=== PATIENT | female | born 1955 | race African-American/Black ===

== ENCOUNTER → 2017-10-31 | Outpatient (CLI) | payer MEDICARE | END | disposition home or self-care (01) | LOC: KCIC 14:18 | DX: M81.6 Localized osteoporosis [Lequesne] (principal); M79.672 Pain in left foot; G89.29 Other chronic pain | CPT/HCPCS: 73630 ==

== ENCOUNTER 2017-11-05 14:35 | Emergency (ER) | payer MEDICARE ==
[2017-11-05] MEDS: ASPIRIN 325 MG TABLET PO (15:30)
[2017-11-05 15:47] LABS: ADD MAN DIFF? NO
[2017-11-05 15:49] LABS: AGAP ISTAT 12 mmol/L (6-14); BUN ISTAT 10 mg/dL (8-26); CHLORIDE ISTAT 100 mmol/L (98-110); CREATININE ISTAT 1.1 mg/dL (0.5-1.4); GLUCOSE ISTAT 109 mg/dL (70-99); HEMATOCRIT ISTAT 47 % (36-40); ION CA ISTAT 1.09 mmol/L (1.13-1.32); POTASSIUM ISTAT 3.9 mmol/L (3.5-5.0); SODIUM ISTAT 135 mmol/L (135-145); TOT CO2 ISTAT 28 mmol/L (23-32)
[2017-11-05 15:52] LABS: BASO # 0.1 x10^3/uL (0.0-0.2); BASO % 1 % (0-3); EOS % 0 % (0-3); HEMATOCRIT 44.9 % (36.0-47.0); LYMPH # 2.5 x10^3/uL (1.0-4.8); LYMPH % 21 % (24-48); MEAN CORPUSCULAR HEMOGLOBIN 29 pg (25-35); MEAN CORPUSCULAR HGB CONC 33 g/dL (31-37); MEAN CORPUSCULAR VOLUME 86 fL (79-100); MONO # 0.9 x10^3/uL (0.0-1.1); MONO % 8 % (0-9); NEUT # 8.5 x10^3uL (1.8-7.7); NEUT % 70 % (31-73); PLATELET COUNT 288 x10^3/uL (140-400); RED BLOOD COUNT 5.23 x10^6/uL (3.50-5.40)
[2017-11-05 15:59] LABS: PROTHROMBIN TIME PATIENT 12.7 SEC (11.7-14.0)
[2017-11-05 16:04] LABS: ANION GAP 11 (6-14); BLOOD UREA NITROGEN 10 mg/dL (7-20); CALCIUM 9.9 mg/dL (8.5-10.1); CARBON DIOXIDE 28 mmol/L (21-32); CHLORIDE 99 mmol/L (98-107); CREATININE 1.2 mg/dL (0.6-1.0); GFR 55.4; GLUCOSE 113 mg/dL (70-99); MAGNESIUM 1.9 mg/dL (1.8-2.4); SODIUM 138 mmol/L (136-145)
[2017-11-05 16:10] LABS: TROPONINI < 0.017 ng/mL (0.000-0.055)
[2017-11-05 16:15] LABS: NT-PRO BNP 1350 pg/mL (0-124)
[2017-11-05 16:15] LABS: CKMB INDEX 0.5 % (0-4); CKMB MASS 0.6 ng/mL (0.0-3.6); CREATINE KINASE 124 U/L (26-192)
[2017-11-05 17:02] LABS: BILIRUBIN,URINE SMALL (NEG); CLARITY,URINE CLOUDY; GLUCOSE,URINE NEGATIVE (NEG); NITRITE,URINE POSITIVE (NEG); PH,URINE 5.5; PROTEIN,URINE 100 mg/dL (NEG-TRACE)
[2017-11-05 17:08] LABS: BARBITURATES NEG (NEG); BENZODIAZEPINES NEG (NEG); CANNABINOIDS POS (NEG); COCAINE NEG (NEG); METHADONE NEG (NEG); OPIATES NEG (NEG); PHENCYCLIDINE NEG (NEG)
[2017-11-05 17:10] LABS: AMPHETAMINE/METHAMPHETAMINE NEG (NEG); ETHANOL, URINE NEG (NEG)
[2017-11-05 17:17] LABS: COLOR,URINE AMBER; HYALINE CASTS, URINE MODERATE /HPF; RBC,URINE 0 /HPF (0-2); SQUAMOUS EPITHELIAL CELL,UR MANY /LPF
[2017-11-05 17:18] LABS: BACTERIA,URINE FEW /HPF (0-FEW)
== END 2017-11-05 17:17 | disposition home or self-care (01) ==
LOC: ER 14:35
DX: M47.812 Spondylosis without myelopathy or radiculopathy, cervical region (principal); M19.012 Primary osteoarthritis, left shoulder; E11.9 Type 2 diabetes mellitus without complications; I10 Essential (primary) hypertension; Z86.73 Personal history of transient ischemic attack (TIA), and cerebral infarction without residual deficits; Z79.82 Long term (current) use of aspirin
CPT/HCPCS: 36415; 71045; 72040; 73030; 80047; 80048; 80307; 81001; 82553; 83735; 83880; 84443; 84484; 85025; 85610; 93005; 99285-25

== ENCOUNTER → 2018-12-05 | Outpatient (CLI) | payer MEDICARE ==
[2017-11-05 17:07] VITALS: BP 155/69
[~2018-12-05] MED LIST: AMLO10TA8 PO; ASPI325T8 PO; ATOR40TA59 PO; CYCL10TA2 PO; HYDR-3164 PO; METF500T16 PO; NAPR-695 PO
[2018-12-05 11:46] LABS: BASO # 0.1 x10^3/uL (0.0-0.2); BASO % 1 % (0-3); EOS # 0.5 x10^3/uL (0.0-0.7); EOS % 8 % (0-3); HEMATOCRIT 41.6 % (36.0-47.0); HEMOGLOBIN 13.6 g/dL (12.0-15.5); LYMPH # 2.3 x10^3/uL (1.0-4.8); LYMPH % 38 % (24-48); MEAN CORPUSCULAR HEMOGLOBIN 28 pg (25-35); MEAN CORPUSCULAR HGB CONC 33 g/dL (31-37); MEAN CORPUSCULAR VOLUME 87 fL (79-100); MONO # 0.4 x10^3/uL (0.0-1.1); MONO % 6 % (0-9); NEUT # 2.9 x10^3uL (1.8-7.7); NEUT % 47 % (31-73); PLATELET COUNT 266 x10^3/uL (140-400); RED CELL DISTRIBUTION WIDTH 14.4 % (11.5-14.5); WHITE BLOOD COUNT 6.2 x10^3/uL (4.0-11.0)
[2018-12-05 12:14] LABS: ALBUMIN 3.4 g/dL (3.4-5.0); ALBUMIN/GLOBULIN RATIO 0.8 (1.0-1.7); CALCIUM 9.1 mg/dL (8.5-10.1); CREATININE 0.9 mg/dL (0.6-1.0); POTASSIUM 4.1 mmol/L (3.5-5.1); TOTAL BILIRUBIN 0.4 mg/dL (0.2-1.0); TOTAL PROTEIN 7.5 g/dL (6.4-8.2)
[2018-12-05 12:18] LABS: CHOLESTEROL/HDL RATIO 3.8
[2018-12-05 22:08] LABS: HEMOGLOBIN A1C 6.1 % (4.8-5.6)
== END | disposition home or self-care (01) ==
LOC: LAB 11:19
PROVIDERS: ATTEND Family Medicine
DX: Z13.220 Encounter for screening for lipoid disorders (principal); I10 Essential (primary) hypertension; R73.09 Other abnormal glucose; Z87.891 Personal history of nicotine dependence
CPT/HCPCS: 36415; 80053; 80061; 83036; 85025

== ENCOUNTER 2019-03-26 20:54 | Emergency (ER) | payer MEDICARE, OTHER ==
[~2019-03-26] VITALS: Ht 154.9 cm; Wt 85.3 kg
[2019-03-26] MEDS ORDERED: ACETAMINOPHEN 500 MG TABLET PO ONE (21:15)
[2019-03-26 21:16] LABS: BASO % 1 % (0-3); EOS # 0.4 x10^3/uL (0.0-0.7); EOS % 6 % (0-3); HEMATOCRIT 36.6 % (36.0-47.0); HEMOGLOBIN 12.5 g/dL (12.0-15.5); LYMPH # 3.2 x10^3/uL (1.0-4.8); LYMPH % 47 % (24-48); MEAN CORPUSCULAR HEMOGLOBIN 29 pg (25-35); MEAN CORPUSCULAR HGB CONC 34 g/dL (31-37); MEAN CORPUSCULAR VOLUME 85 fL (79-100); MONO # 0.5 x10^3/uL (0.0-1.1); MONO % 8 % (0-9); NEUT # 2.7 x10^3/uL (1.8-7.7); NEUT % 39 % (31-73); PLATELET COUNT 257 x10^3/uL (140-400); RED BLOOD COUNT 4.29 x10^6/uL (3.50-5.40); RED CELL DISTRIBUTION WIDTH 14.4 % (11.5-14.5); WHITE BLOOD COUNT 6.8 x10^3/uL (4.0-11.0)
[2019-03-26 21:25] LABS: CALCIUM 8.8 mg/dL (8.5-10.1); GFR 68.2; POTASSIUM 4.1 mmol/L (3.5-5.1)
[2019-03-26 21:31] LABS: ALBUMIN 3.2 g/dL (3.4-5.0); ALBUMIN/GLOBULIN RATIO 0.8 (1.0-1.7); TOTAL BILIRUBIN 0.3 mg/dL (0.2-1.0); TOTAL PROTEIN 7.1 g/dL (6.4-8.2)
[2019-03-26 21:55] LABS: % BASOS 2 % (0-3); % EOS 5 % (0-5); % LYMPHS 48 % (24-48); % MONOS 6 % (0-10); % SEGS 39 % (35-66); PLT ESTIMATE ADEQUATE (ADEQUATE)
--- NOTE | 2019-03-26 22:11 | PHYS DOC ---
Past Medical History Past Medical History: CVA, Diabetes-Type II, Hypertension, NM, Stroke Additional Past Medical Histor: CVA X 2, NM 2018 Past Surgical History: Cholecystectomy Alcohol Use: None Drug Use: None Adult General Chief Complaint Chief Complaint: CHEST PAIN HPI HPI Patient is a 63 year old [place] female presents with multiple medical complaints. Patient reports generalized weakness and right hip pain prompting her daughter to call EMS. Patient states she's been walking without her cane throughout the day and reports worsening of right hip pain and generalized weakness secondary to pain. Patient also reports on exertional left-sided chest pressure which is been intermittent for the past 2 days. Denies dyspnea, nausea, sweats, cough, A with deep breathing. No leg pain or swelling. Reports history of CAD with an STEMI last year. Patient states she did not follow-up with car diologist as previously scheduled. Patient has had similar chest pain episodes in the past 3 days and is currently pain-free on ED arrival. [] Review of Systems Review of Systems ROS as per HPI All other systems were reviewed and found to be within normal limits, except as documented in this note. Current Medications Current Medications Current Medications Medications (Trade) Dose Ordered Sig/Sandeep Start Time Stop Time Status Last Admin Dose Admin Acetaminophen (Tylenol) 1,000 mg 1X ONCE 03/26/19 21:15 03/26/19 21:16 DC 03/26/19 21:20 1,000 MG Allergies Allergies Allergies Coded Allergies Type Severity Reaction Last Updated Verified No Known Drug Allergies 05/14/16 No Physical Exam Physical Exam Constitutional: Well developed, well nourished, no acute distress, non-toxic appearance. [] HENT: Normocephalic, atraumatic, bilateral external ears normal, oropharynx moist, no oral exudates, nose normal. [] Eyes: PERRLA, EOMI, conjunctiva normal, no discharge. [] Neck: Normal range of motion, no tenderness, supple, no stridor. [] Cardiovascular:Heart rate regular rhythm, no murmur [] Lungs & Thorax: Bilateral breath sounds clear to auscultation [] Abdomen: Bowel sounds normal, soft, no tenderness, no masses, no pulsatile masses. [] Skin: Warm, dry, no erythema, no rash. [] Back: No tenderness, no CVA tenderness. [] Extremities: No tenderness, no cyanosis, no clubbing, ROM intact, no edema. [] Neurologic: Alert and oriented X 3, normal motor function, normal sensory function, no focal deficits noted. [] Psychologic: Affect normal, judgement normal, mood normal. [] Current Patient Data Vital Signs Vital Signs Date Time Temp Pulse Resp B/P (MAP) Pulse Ox O2 Delivery O2 Flow Rate FiO2 03/26/19 22:00 65 177/74 (108) 98 Room Air 03/26/19 21:00 98.3 20 98.3 Lab Values Laboratory Tests Test 03/26/19 21:00 White Blood Count 6.8 x10^3/uL (4.0-11.0) Red Blood Count 4.29 x10^6/uL (3.50-5.40) Hemoglobin 12.5 g/dL (12.0-15.5) Hematocrit 36.6 % (36.0-47.0) Mean Corpuscular Volume 85 fL (79-100) Mean Corpuscular Hemoglobin 29 pg (25-35) Mean Corpuscular Hemoglobin Concent 34 g/dL (31-37) Red Cell Distribution Width 14.4 % (11.5-14.5) Platelet Count 257 x10^3/uL (140-400) Neutrophils (%) (Auto) 39 % (31-73) Lymphocytes (%) (Auto) 47 % (24-48) Monocytes (%) (Auto) 8 % (0-9) Eosinophils (%) (Auto) 6 % (0-3) H Basophils (%) (Auto) 1 % (0-3) Neutrophils # (Auto) 2.7 x10^3/uL (1.8-7.7) Lymphocytes # (Auto) 3.2 x10^3/uL (1.0-4.8) Monocytes # (Auto) 0.5 x10^3/uL (0.0-1.1) Eosinophils # (Auto) 0.4 x10^3/uL (0.0-0.7) Basophils # (Auto) 0.0 x10^3/uL (0.0-0.2) Segmented Neutrophils % 39 % (35-66) Lymphocytes % 48 % (24-48) Monocytes % 6 % (0-10) Eosinophils % 5 % (0-5) Basophils % 2 % (0-3) Platelet Estimate Adequate (ADEQUATE) Sodium Level 144 mmol/L (136-145) Potassium Level 4.1 mmol/L (3.5-5.1) Chloride Level 107 mmol/L (98-107) Carbon Dioxide Level 27 mmol/L (21-32) Anion Gap 10 (6-14) Blood Urea Nitrogen 7 mg/dL (7-20) Creatinine 1.0 mg/dL (0.6-1.0) Estimated GFR (Cockcroft-Gault) 68.2 BUN/Creatinine Ratio 7 (6-20) Glucose Level 98 mg/dL (70-99) Calcium Level 8.8 mg/dL (8.5-10.1) Total Bilirubin 0.3 mg/dL (0.2-1.0) Aspartate Amino Transferase (AST) 18 U/L (15-37) Alanine Aminotransferase (ALT) 24 U/L (14-59) Alkaline Phosphatase 127 U/L (46-116) H Troponin I Quantitative < 0.017 ng/mL (0.000-0.055) Total Protein 7.1 g/dL (6.4-8.2) Albumin 3.2 g/dL (3.4-5.0) L Albumin/Globulin Ratio 0.8 (1.0-1.7) L Laboratory Tests 03/26/19 21:00 Laboratory Tests 03/26/19 21:00 EKG EKG [EKG: reviewed] Radiology/Procedures Radiology/Procedures [] Course & Med Decision Making Course & Med Decision Making Pertinent Labs and Imaging studies reviewed. (See chart for details) [Typical chest pain resolved prior to ED arrival. Chest pain nonexertional and reproduces with movement and position change. States her intention was come to the ED for evaluation of right hip pain which she attributes to walk without cane. EKG, troponin are nondiagnostic. Patient encouraged to be admitted to the hospital for further evaluation and cardiac stress testing. Patient declines admission and requests discharge from hospital. Will discharge home per patient request pending repeat troponin result.] Dragon Disclaimer Dragon Disclaimer This electronic medical record was generated, in whole or in part, using a voice recognition dictation system. Departure Departure Impression: Primary Impression: Chest pain Additional Impression: Right hip pain Disposition: HOME, SELF-CARE Condition: GOOD Referrals: Natalya MANZANARES MD (PCP) Patient Instructions: Chest Pain (Nonspecific) Additional Instructions: You were evaluated in the ED for chest pain. EKG and lab were performed and are non-dx. The cause of your symptoms has not been determined. Please follow up with your PCP in 2-3 days for re-evaluation and consideration of outpatient cardiac testing. Return to the ED if he develop new or worsening symptoms Problem Qualifiers JESSICA DAVILA DO Mar 26, 2019 22:11
[2019-03-27] VITALS: BP 152/65
--- NOTE | 2019-03-27 05:55 | EKG ---
[facility] [address] [place] [address] Test Date: 2019-03-26 Test Time: 20:56:11 Pat Name: PATY WELLER Department: Room: Gender: F Instrumentation Specialist: : 1955 Requested By: JESSICA DAVILA Order Number: [id number] Reading MD: Measurements Intervals [place] Rate: 55 P: 49 MO: 142 QRS: -51 QRSD: 124 T: 35 QT: 456 QTc: 442 Interpretive Statements SINUS RHYTHM ATRIAL PREMATURE COMPLEX(ES) ABNORMAL LEFT AXIS DEVIATION S1,S2,S3 PATTERN LEFT ANTERIOR FASCICULAR BLOCK RIGHT BUNDLE BRANCH BLOCK BIFASCICULAR BLOCK ABNORMAL ECG No previous ECG available for comparison
== END 2019-03-27 00:04 | disposition home or self-care (01) ==
LOC: ER 20:54
DX: R07.89 Other chest pain (principal); M25.551 Pain in right hip; R53.1 Weakness; E11.9 Type 2 diabetes mellitus without complications; I10 Essential (primary) hypertension; I25.2 Old myocardial infarction; Z86.73 Personal history of transient ischemic attack (TIA), and cerebral infarction without residual deficits; Z90.49 Acquired absence of other specified parts of digestive tract
CPT/HCPCS: 36415; 80053; 84484; 85007; 85025; 93005; 99285

== ENCOUNTER → 2020-05-04 | Outpatient (CLI) | payer MEDICARE, OTHER ==
[~2020-05-04] MED LIST changes: +SERT100T PO
== END | disposition home or self-care (01) ==
LOC: LAB 13:43
PROVIDERS: ATTEND Internal Medicine Cardiovascular Disease
DX: Z20.828 Contact with and (suspected) exposure to other viral communicable diseases (principal)
CPT/HCPCS: U0003-CS

== ENCOUNTER → 2020-05-19 | Outpatient (CLI) | payer MEDICARE, OTHER ==
[2020-05-07 10:34] VITALS: BP 183/74
[~2020-05-19] MED LIST changes: +ASPI-886 PO; +ATOR40TA PO; +CLOP75TA PO; +HYDR-2761 PO
--- NOTE | 2020-05-19 12:43 | CARD ---
MR#: [id number] Date of Study: 05/19/2020 Ordering Physician: DEMARCUS LATHAM, Referring Physician: DEMARCUS LATHAM, Tech: Yuko Reaves [facility] APPROVED REPORT EXAM: Two-dimensional and M-mode echocardiogram with Doppler and color Doppler. Other Information Quality : Good INDICATION CVA/TIA 2D DIMENSIONS RVDd2.6 (2.9-3.5cm)Left Atrium(2D)3.3 (1.6-4.0cm) IVSd1.2 (0.7-1.1cm)Aortic Root(2D)2.7 (2.0-3.7cm) LVDd4.6 (3.9-5.9cm)LVOT Diameter2.1 (1.8-2.4cm) PWd1.0 (0.7-1.1cm)LVDs2.6 (2.5-4.0cm) FS (%) 30.0 %SV72.0 ml LVEF(%)60.0 (>50%) Aortic Valve AoV Peak Lino.136.6cm/sAoV VTI30.9cm AO Peak GR.7.5mmHgLVOT Peak Lino.123.0cm/s AO Mean GR.3mmHgAVA (VMAX)3.16cm2 KATERYNA (VTI)3.00cm2 Mitral Valve MV E Gotpzzff99.7cm/sMV DECEL ORWJ565ol MV A Ojltdyuv39.5cm/sE/A Ratio1.4 Tricuspid Valve TR P. Klexfpsv970ys/sRAP LLBDXDQU0dzXo TR Peak Gr.24adUfPQLL22wdJl Pulmonary Vein S1 Ycfoytoo98.4cm/sD2 Ictlbzju21.1cm/s LEFT VENTRICLE The left ventricle is normal size. There is mild concentric left ventricular hypertrophy. The left ve ntricular systolic function is normal. The Ejection Fraction is 60-65%. There is normal LV segmental wall motion. RIGHT VENTRICLE The right ventricle is normal size. The right ventricular systolic function is normal. ATRIA The left atrium size is normal. The right atrium size is normal. The interatrial septum is intact wit h no evidence for an atrial septal defect or patent foramen ovale as noted on 2-D or Doppler imaging. AORTIC VALVE The aortic valve is calcified but opens well. Doppler and Color Flow revealed no significant aortic r egurgitation. There is no significant aortic valvular stenosis. MITRAL VALVE The mitral valve is calcified but opens well. There is no evidence of mitral valve prolapse. There is no mitral valve stenosis. Doppler and Color Flow revealed no mitral valve regurgitation noted. TRICUSPID VALVE The tricuspid valve is normal in structure and function. Doppler and Color Flow revealed trace tricus pid regurgitation. The PA pressure was estimated at 26 mmHg. There is no tricuspid valve stenosis. PULMONIC VALVE The pulmonary valve is normal in structure and function. Doppler and Color Flow revealed trace pulmon ic valvular regurgitation. There is no pulmonic valvular stenosis. GREAT VESSELS The aortic root is normal in size. The ascending aorta is normal in size. The IVC is normal in size a nd collapses >50% with inspiration. PERICARDIAL EFFUSION There is no evidence of significant pericardial effusion. Critical Notification Critical Value: No <Conclusion> The left ventricular systolic function is normal. The Ejection Fraction is 60-65%. There is normal LV segmental wall motion. Trace tricuspid regurgitation. The PA pressure was estimated at 26 mmHg. There is no evidence of significant pericardial effusion. Signed by : Ochoa Tsang, Electronically Approved : 05/19/2020 12:43:23
== END ==
LOC: ECHO 09:06
PROVIDERS: ATTEND Internal Medicine Cardiovascular Disease
DX: I08.0 Rheumatic disorders of both mitral and aortic valves (principal); Z86.73 Personal history of transient ischemic attack (TIA), and cerebral infarction without residual deficits
CPT/HCPCS: 93306

== ENCOUNTER → 2021-01-19 | Outpatient (CLI) | payer MEDICARE ==
[2020-05-07 10:34] VITALS: BP 183/74
[~2021-01-19] MED LIST changes: +AMLO-187 PO; -AMLO10TA8 PO
--- NOTE | 2021-01-19 12:49 | KCIC ---
EXAM: Right knee, 3 views. HISTORY: Pain. COMPARISON: None. FINDINGS: 3 views of the right knee are obtained. There is mild medial compartment joint space narrow ing. There is a small joint effusion. There is no fracture, dislocation or subluxation. IMPRESSION: 1. Mild medial compartment osteoarthritis of the right knee. 2. Small right knee effusion. Electronically signed by: Jerri Xavier MD (01/19/2021 12:46 PM) [id number]
== END ==
LOC: KCIC 10:51
PROVIDERS: ATTEND Family Medicine
DX: M17.11 Unilateral primary osteoarthritis, right knee (principal); M25.461 Effusion, right knee
CPT/HCPCS: 73562

== ENCOUNTER → 2021-03-01 | Outpatient (CLI) | payer MEDICARE, OTHER ==
[2020-05-07 10:34] VITALS: BP 183/74
--- NOTE | 2021-03-02 18:16 | RAD ---
MR#: [id number] Date of Study: 03/01/2021 Ordering Physician: DEMARCUS LATHAM, Referring Physician: DEMARCUS LATHAM, Tech: Aj Mills MBA, RDMS, RVT, RDCS, RTR APPROVED REPORT Patient Location: OUT-PATIENT Indications PAD Findings Ankle-brachial indices are as follows: Right arm 156, left arm 165 Right ankle 130, left ankle 106 Right DEDE 0.78, left DEDE 0.64 Critical Notification Critical Value: No <Conclusion> 1. Moderate to severe bilateral abnormalities of ankle-brachial indices as noted above. Signed by : Demarcus Latham, Electronically Approved : 03/02/2021 18:16:09
--- NOTE | 2021-03-02 18:18 | RAD ---
MR#: [id number] Date of Study: 03/01/2021 Ordering Physician: DEMARCUS LATHAM, Referring Physician: DEMARCUS LATHAM, Tech: Aj Mills MBA, RDMS, RVT, RDCS, RTR APPROVED REPORT Patient Location: OUT-PATIENT Indications PAD VELOCITY AND DOPPLER WAVEFORM ANALYSIS RIGHT cm/secWaveformSeverity LEFT cm/secWaveform Severity dCFA 122.0MonophasicdCFA 209.0Monophasic Prof Fem Art. 83.0MonophasicProf Fem Art. 92.0Monophasic Fem Art Prox. 213.0MonophasicFem Art Prox. 198.0Monophasic Fem Art Mid. 252.0MonophasicFem Art Mid. Occluded Fem Art Dist. 130.0MonophasicFem Art Dist. 58.0Monophasic Pop Art(Fossa) 83.0MonophasicPop Art(AK) 71.0Monophasic PRINTED CIRCUIT BOARD PREASSEMBLER Prox. 32.0MonophasicPTA Prox. 53.0Monophasic PRINTED [employer] BOARD PREASSEMBLER Dist. 59.0MonophasicPTA Dist. 44.0Monophasic Per Art Mid. 37.0MonophasicPer Art Mid. 26.0Monophasic JAIR Prox. 45.0MonophasicATA Prox. 42.0Monophasic DPA 48MonophasicDPA 32Monophasic Findings Grayscale images the bilateral lower extremity arterial vessels demonstrate moderate diffuse atherosc lerosis. On the right side there are monophasic waveforms suggestive of more proximal inflow disease. There i s likely a greater than 50% stenosis involving the mid SFA. There is three-vessel runoff below the k nee with monophasic wave patterns again consistent with more proximal disease On the left side there are monophasic waveforms consistent with more proximal iliac disease. The lef t SFA is likely occluded. There is reconstitution at the abductor canal with three-vessel runoff bel ow the knee in a monophasic wave pattern. Critical Notification Critical Value: No <Conclusion> 1. 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
--- NOTE | 2021-03-02 18:23 | RAD ---
MR#: [id number] Date of Study: 03/01/2021 Ordering Physician: DEMARCUS LATHAM, Referring Physician: DEMARCUS LATHAM, Tech: Aj Mills MBA, RDMS, RVT, RDCS, RTR APPROVED REPORT Patient Location: OUT-PATIENT Laterality:Bilateral Indications CVA/TIA: Doppler Spectral Velocity Analysis Right Left pCCA 52/13 cm/spCCA 107/22 cm/s mCCA 53/11 cm/smCCA 64/15 cm/s dCCA 66/18 cm/sdCCA 60/18 cm/s Bulb 78/20 cm/sBulb 58/16 cm/s ECA 65/ cm/sECA 48/ cm/s pICA 51/14 cm/spICA 64/21 cm/s Smiley 56/11 cm/smICA 73/26 cm/s dICA 50/13 cm/sdICA 68/22 cm/s Vert. 50/ cm/sVert. 55/ cm/s Subcl. 147/ cm/sSubcl. 121/ cm/s ICA/CCA 0.85ICA/CCA 0.68 Findings Grayscale images of the bilateral carotid vessels demonstrates mild diffuse atherosclerosis. Overall no significant obstructive plaque is noted. Spectral waveforms and color Doppler are grossly within normal limits. Normal ICA to CCA ratios bilaterally. Normal antegrade vertebral velocities bilater ally. Normal subclavian velocities bilaterally. Critical Notification Critical Value: No <Conclusion> 1. No significant bilateral carotid occlusive disease. Signed by : Demarcus Latham, Electronically Approved : 03/02/2021 18:22:30
== END ==
LOC: US 09:05
PROVIDERS: ATTEND Internal Medicine Cardiovascular Disease
DX: I70.203 Unspecified atherosclerosis of native arteries of extremities, bilateral legs (principal); I65.23 Occlusion and stenosis of bilateral carotid arteries; Z86.73 Personal history of transient ischemic attack (TIA), and cerebral infarction without residual deficits
CPT/HCPCS: 93880; 93922; 93925

== ENCOUNTER 2021-06-16 07:46 | Observation (INO) | payer MEDICARE, OTHER ==
[2021-06-16] VITALS (16 sets, daily range): BP systolic 138–199; BP diastolic 53–92
[~2021-06-16] VITALS: Ht 154.9 cm; Wt 92.2 kg
[~2021-06-16 07:46] MED LIST changes: +CYCL10TA19 PO; -CYCL10TA2 PO
[2021-06-16] MEDS ORDERED: LIDOCAINE 1% Multi-Dose 20 ML VIAL. ONE ×2 (07:47→09:15)
[2021-06-16] MEDS ORDERED: IODIXANOL 320 MG/ML 100 ML VIAL. ONE (07:47)
[2021-06-16] MEDS ORDERED: HEPARIN for ARTERIAL LINE 1,500 ML ONE (07:47)
[2021-06-16] MEDS ORDERED: GABA600T7 PO (08:17)
[2021-06-16] MEDS ORDERED: DICL20GE TP (08:17)
[2021-06-16] MEDS ORDERED: CELE200C PO (08:17)
[2021-06-16] MEDS ORDERED: BUPR150T15 PO (08:17)
[2021-06-16] MEDS ORDERED: AMLO-186 PO (08:17)
[2021-06-16 08:28] LABS: CALCIUM 8.6 mg/dL (8.5-10.1); CREATININE 0.8 mg/dL (0.6-1.0); GFR 87.7; POTASSIUM 4.6 mmol/L (3.5-5.1)
[2021-06-16] MEDS ORDERED: CLOP75TA PO (08:30)
[2021-06-16 08:38] LABS: PROTHROMBIN TIME PATIENT 11.8 SEC (11.7-14.0)
[2021-06-16] MEDS ORDERED: MIDAZOLAM HCL/PF 2 MG/2 ML VIAL. ONE ×3 (08:51→10:27)
[2021-06-16] MEDS ORDERED: fentaNYL PF VIAL 100 MCG/2 ML VIAL ONE ×4 (08:52→11:25)
[2021-06-16 08:56] LABS: BASO # 0.1 x10^3/uL (0.0-0.2); BASO % 1 % (0-3); EOS # 0.2 x10^3/uL (0.0-0.7); EOS % 4 % (0-3); HEMATOCRIT 39.1 % (36.0-47.0); HEMOGLOBIN 12.7 g/dL (12.0-15.5); LYMPH # 1.7 x10^3/uL (1.0-4.8); LYMPH % 32 % (24-48); MEAN CORPUSCULAR HEMOGLOBIN 28 pg (25-35); MEAN CORPUSCULAR HGB CONC 33 g/dL (31-37); MEAN CORPUSCULAR VOLUME 86 fL (79-100); MONO # 0.5 x10^3/uL (0.0-1.1); MONO % 9 % (0-9); NEUT # 2.9 x10^3/uL (1.8-7.7); NEUT % 54 % (31-73); PLATELET COUNT 295 x10^3/uL (140-400); RED BLOOD COUNT 4.55 x10^6/uL (3.50-5.40); RED CELL DISTRIBUTION WIDTH 14.1 % (11.5-14.5); WHITE BLOOD COUNT 5.4 x10^3/uL (4.0-11.0)
[2021-06-16] MEDS ORDERED: MIDAZOLAM HCL/PF 2 MG/2 ML VIAL. IV ONE (09:00)
[2021-06-16] MEDS ORDERED: fentaNYL PF VIAL 100 MCG/2 ML VIAL IV ONE (09:00)
[2021-06-16] MEDS ORDERED: LIDOCAINE 1% Multi-Dose 20 ML VIAL. INJ ONE (09:00)
[2021-06-16] MEDS ORDERED: HEPARIN for IV BOLUS 10,000 UNIT/10 ML VIAL. ONE ×2 (09:19→09:38)
[2021-06-16] MEDS ORDERED: NITROGLYCERIN 4 MG/20 ML SYRINGE for CATH LAB. ONE ×2 (09:45→10:00)
[2021-06-16] MEDS ORDERED: NITROGLYCERIN 4 MG/20 ML SYRINGE for CATH LAB. IV ONE (10:00)
[2021-06-16] MEDS ORDERED: NITROGLYCERIN 200 MCG/2 ML SYRINGE FOR CATH/VASC LAB. ONE (10:14)
[2021-06-16] MEDS ORDERED: NITROGLYCERIN 200 MCG/2 ML SYRINGE FOR CATH/VASC LAB. IART ONE (10:15)
[2021-06-16] MEDS ORDERED: IODIXANOL 320 MG/ML 100 ML VIAL. IV ONE (10:45)
[2021-06-16] MEDS ORDERED: CONTRAST GIVEN. MC PRN (11:00)
[2021-06-16] MEDS ORDERED: MIDAZOLAM HCL/PF 5 MG/5 ML VIAL. ONE (11:25)
--- NOTE | 2021-06-16 11:55 | NUR ---
Pt line pulled by Romina RT at 1130; pressure held till 1150, when hemostasis achieved. Site soft with no bruising, oozing, or swelling. Left and right pedal pulses +2. VSS. Will continue to monitor.
[2021-06-16] MEDS ORDERED: MIDAZOLAM HCL/PF 5 MG/5 ML VIAL. IVP ONE (12:15)
[2021-06-16] MEDS ORDERED: fentaNYL PF VIAL 100 MCG/2 ML VIAL IVP ONE (12:15)
--- NOTE | 2021-06-16 13:30 | NUR ---
Left groin dressing site saturated with blood; though site remains soft with no swelling or bruising. Left pedal pulse remains a +2, and palpable. Romina RT called and Dr. Murillo notified. Romina came and assessed site. Dressing was removed by Romina RT; no oozing, swelling, firmness, or bruising noted. Romina replaced V-Pad, gauze pads, and tegaderm dressings. Site remains soft with no bleeding. VSS. Order received per Dr. Murillo to admit patient for observation. Will continue to monitor.
--- NOTE | 2021-06-16 15:00 | PDOC1 ---
History and Physical Visit Information Date of Admission: Jun 16, 2021 at 13:25 History of Present Illness History of Present Illness Ms. Mary is a 65-year-old woman who comes into the hospital for treatment of peripheral arterial disease. She has known left SFA occlusion and more recently is also been having right-sided claudication. She has DEDE consistent with disease in both lower extremities. She was seen by the podiatry service and referred to us. After long discussion in the office she had elected to undergo aortogram and intervention due to her worsening symptoms. She also has other symptoms including back pain and neuropathic pain. Cardiac Risk Factors Comments CVA Hypertension Dyslipidemia Tobacco abuse Peripheral arterial disease status post left external iliac artery stent Current Medications Current Medications Current Medications Diltiazem HCl (Cardizem Iv Push) 5 mg 1X ONCE IVP ; Start 06/16/21 at 10:00; Stop 06/16/21 at 10:10; Status DC Diltiazem HCl (Cardizem Iv Push) 25 mg STK-MED ONCE .ROUTE ; Start 06/16/21 at 09:45; Stop 06/16/21 at 09:46; Status DC Diltiazem HCl 10 mg/Nitroglycerin 4 mg/Heparin Sodium (Porcine) 01645 unit/ Miscellaneous 20 ml/Sodium Chloride 1,052 ml @ 1,000 mls/hr 1X ONCE INT CAT Last administered on 06/16/21at 10:00; Start 06/16/21 at 10:00; Stop 06/16/21 at 11:03; Status DC Fentanyl Citrate (Fentanyl 2ml Vial) 25 mcg 1X ONCE IVP Last administered on 06/16/21at 11:35; Start 06/16/21 at 12:15; Stop 06/16/21 at 12:16; Status DC Fentanyl Citrate (Fentanyl 2ml Vial) 100 mcg 1X ONCE IV Last administered on 06/16/21at 09:00; Start 06/16/21 at 09:00; Stop 06/16/21 at 09:03; Status DC Fentanyl Citrate (Fentanyl 2ml Vial) 100 mcg STK-MED ONCE .ROUTE ; Start 06/16/21 at 08:52; Stop 06/16/21 at 08:52; Status DC Fentanyl Citrate (Fentanyl 2ml Vial) 100 mcg STK-MED ONCE .ROUTE ; Start 06/16/21 at 09:39; Stop 06/16/21 at 09:40; Status DC Fentanyl Citrate (Fentanyl 2ml Vial) 100 mcg STK-MED ONCE .ROUTE ; Start 06/16/21 at 10:27; Stop 06/16/21 at 10:27; Status DC Fentanyl Citrate (Fentanyl 2ml Vial) 100 mcg STK-MED ONCE .ROUTE ; Start 06/16/21 at 11:25; Stop 06/16/21 at 11:25; Status DC Heparin Sodium (Porcine) (Heparin Sodium) 10,000 unit STK-MED ONCE .ROUTE ; Start 06/16/21 at 09:19; Stop 06/16/21 at 09:19; Status DC Heparin Sodium (Porcine) (Heparin Sodium) 10,000 unit STK-MED ONCE .ROUTE ; Start 06/16/21 at 09:38; Stop 06/16/21 at 09:38; Status DC Heparin Sodium/ Sodium Chloride 500 ml @ As Directed STK-MED ONCE .ROUTE ; Start 06/16/21 at 10:32; Stop 06/16/21 at 10:32; Status DC Heparin Sodium/ Sodium Chloride 1,500 ml @ As Directed STK-MED ONCE .ROUTE ; Start 06/16/21 at 07:47; Stop 06/16/21 at 07:48; Status DC Heparin Sodium/ Sodium Chloride (HEPARIN for ARTERIAL LINE FLUSH) 1,000 unit 1X ONCE IART Last administered on 06/16/21at 09:00; Start 06/16/21 at 09:00; Stop 06/16/21 at 09:03; Status DC Heparin Sodium/ Sodium Chloride (HEPARIN for ARTERIAL LINE FLUSH) 1,000 unit 1X ONCE IART Last administered on 06/16/21at 10:00; Start 06/16/21 at 10:00; Stop 06/16/21 at 10:10; Status DC Heparin Sodium/ Sodium Chloride (HEPARIN for ARTERIAL LINE FLUSH) 2,500 unit 1X ONCE IV Last administered on 06/16/21at 09:30; Start 06/16/21 at 09:30; Stop 06/16/21 at 09:31; Status DC Heparin Sodium/ Sodium Chloride (HEPARIN for ARTERIAL LINE FLUSH) 3,000 unit 1X ONCE IV Last administered on 06/16/21at 10:00; Start 06/16/21 at 10:00; Stop 06/16/21 at 10:10; Status DC Info (CONTRAST GIVEN -- Rx MONITORING) 1 each PRN DAILY PRN MC SEE COMMENTS; Start 06/16/21 at 11:00; Stop 06/18/21 at 10:59 Iodixanol (Visipaque 320) 100 ml 1X ONCE IV Last administered on 06/16/21at 10:45; Start 06/16/21 at 10:45; Stop 06/16/21 at 10:51; Status DC Iodixanol (Visipaque 320) 100 ml STK-MED ONCE .ROUTE ; Start 06/16/21 at 07:47; Stop 06/16/21 at 07:47; Status DC Lidocaine HCl (Lidocaine 1% 20ml Vial) 20 ml 1X ONCE INJ Last administered on 06/16/21at 09:00; Start 06/16/21 at 09:00; Stop 06/16/21 at 09:03; Status DC Lidocaine HCl (Lidocaine 1% 20ml Vial) 20 ml STK-MED ONCE .ROUTE ; Start 06/16/21 at 07:47; Stop 06/16/21 at 07:47; Status DC Lidocaine HCl (Lidocaine 1% 20ml Vial) 20 ml STK-MED ONCE .ROUTE ; Start 06/16/21 at 09:15; Stop 06/16/21 at 09:15; Status DC Midazolam HCl (Versed) 1 mg 1X ONCE IVP Last administered on 06/16/21at 11:35; Start 06/16/21 at 12:15; Stop 06/16/21 at 12:16; Status DC Midazolam HCl (Versed) 2 mg 1X ONCE IV Last administered on 06/16/21at 09:00; Start 06/16/21 at 09:00; Stop 06/16/21 at 09:03; Status DC Midazolam HCl (Versed) 2 mg STK-MED ONCE .ROUTE ; Start 06/16/21 at 08:51; Stop 06/16/21 at 08:52; Status DC Midazolam HCl (Versed) 2 mg STK-MED ONCE .ROUTE ; Start 06/16/21 at 10:00; Stop 06/16/21 at 10:00; Status DC Midazolam HCl (Versed) 2 mg STK-MED ONCE .ROUTE ; Start 06/16/21 at 10:27; Stop 06/16/21 at 10:27; Status DC Midazolam HCl (Versed) 5 mg STK-MED ONCE .ROUTE ; Start 06/16/21 at 11:25; Stop 06/16/21 at 11:25; Status DC Nitroglycerin (Nitroglycerin) 4 mg 1X ONCE IV ; Start 06/16/21 at 10:00; Stop 06/16/21 at 10:10; Status DC Nitroglycerin (Nitroglycerin) 4 mg STK-MED ONCE .ROUTE ; Start 06/16/21 at 09:45; Stop 06/16/21 at 09:46; Status DC Nitroglycerin (Nitroglycerin) 200 mcg 1X ONCE IART Last administered on 06/16/21at 10:15; Start 06/16/21 at 10:15; Stop 06/16/21 at 10:20; Status DC Nitroglycerin (Nitroglycerin) 200 mcg STK-MED ONCE .ROUTE ; Start 06/16/21 at 10:14; Stop 06/16/21 at 10:14; Status DC Allergies Allergies Allergies Coded Allergies Type Severity Reaction Last Updated Verified varenicline Allergy Unknown 06/16/21 Yes Social History Comments Positive for tobacco use. Denies any alcohol or illicit drug use. ROS Review of System Negative for 10 out of 14 systems reviewed unless otherwise mentioned above in HPI Physical Exam General: Alert, Oriented X3 HEENT: Atraumatic Lungs: Clear to auscultation Heart: Regular rate, Normal S1, Normal S2 CHEST: Clear to auscultation, No rales or rhonchi Abdomen: Normal bowel sounds Extremities: No clubbing Skin: No rashes Neuro: Normal gait, Normal speech Vitals VITALS Vital Signs Date Time Temp Pulse Resp B/P (MAP) Pulse Ox O2 Delivery O2 Flow Rate FiO2 06/16/21 13:30 56 21 94 Nasal Cannula 2.0 06/16/21 08:37 97.3 145/70 (95) 97.3 Labs Labs Laboratory Tests Test 06/16/21 08:00 06/16/21 08:40 06/16/21 09:51 06/16/21 10:25 Prothrombin Time 11.8 SEC (11.7-14.0) Prothromb Time International Ratio 0.9 (0.8-1.1) Sodium Level 142 mmol/L (136-145) Potassium Level 4.6 mmol/L (3.5-5.1) Chloride Level 107 mmol/L (98-107) Carbon Dioxide Level 24 mmol/L (21-32) Anion Gap 11 (6-14) Blood Urea Nitrogen 10 mg/dL (7-20) Creatinine 0.8 mg/dL (0.6-1.0) Estimated GFR (Cockcroft-Gault) 87.7 Glucose Level 112 mg/dL (70-99) Calcium Level 8.6 mg/dL (8.5-10.1) White Blood Count 5.4 x10^3/uL (4.0-11.0) Red Blood Count 4.55 x10^6/uL (3.50-5.40) Hemoglobin 12.7 g/dL (12.0-15.5) Hematocrit 39.1 % (36.0-47.0) Mean Corpuscular Volume 86 fL (79-100) Mean Corpuscular Hemoglobin 28 pg (25-35) Mean Corpuscular Hemoglobin Concent 33 g/dL (31-37) Red Cell Distribution Width 14.1 % (11.5-14.5) Platelet Count 295 x10^3/uL (140-400) Neutrophils (%) (Auto) 54 % (31-73) Lymphocytes (%) (Auto) 32 % (24-48) Monocytes (%) (Auto) 9 % (0-9) Eosinophils (%) (Auto) 4 % (0-3) Basophils (%) (Auto) 1 % (0-3) Neutrophils # (Auto) 2.9 x10^3/uL (1.8-7.7) Lymphocytes # (Auto) 1.7 x10^3/uL (1.0-4.8) Monocytes # (Auto) 0.5 x10^3/uL (0.0-1.1) Eosinophils # (Auto) 0.2 x10^3/uL (0.0-0.7) Basophils # (Auto) 0.1 x10^3/uL (0.0-0.2) Activated Clotting Time 207 sec (92-181) 243 sec (92-181) Laboratory Tests Test 06/16/21 08:00 06/16/21 08:40 06/16/21 09:51 06/16/21 10:25 Prothrombin Time 11.8 SEC (11.7-14.0) Prothromb Time International Ratio 0.9 (0.8-1.1) Sodium Level 142 mmol/L (136-145) Potassium Level 4.6 mmol/L (3.5-5.1) Chloride Level 107 mmol/L (98-107) Carbon Dioxide Level 24 mmol/L (21-32) Anion Gap 11 (6-14) Blood Urea Nitrogen 10 mg/dL (7-20) Creatinine 0.8 mg/dL (0.6-1.0) Estimated GFR (Cockcroft-Gault) 87.7 Glucose Level 112 mg/dL (70-99) Calcium Level 8.6 mg/dL (8.5-10.1) White Blood Count 5.4 x10^3/uL (4.0-11.0) Red Blood Count 4.55 x10^6/uL (3.50-5.40) Hemoglobin 12.7 g/dL (12.0-15.5) Hematocrit 39.1 % (36.0-47.0) Mean Corpuscular Volume 86 fL (79-100) Mean Corpuscular Hemoglobin 28 pg (25-35) Mean Corpuscular Hemoglobin Concent 33 g/dL (31-37) Red Cell Distribution Width 14.1 % (11.5-14.5) Platelet Count 295 x10^3/uL (140-400) Neutrophils (%) (Auto) 54 % (31-73) Lymphocytes (%) (Auto) 32 % (24-48) Monocytes (%) (Auto) 9 % (0-9) Eosinophils (%) (Auto) 4 % (0-3) Basophils (%) (Auto) 1 % (0-3) Neutrophils # (Auto) 2.9 x10^3/uL (1.8-7.7) Lymphocytes # (Auto) 1.7 x10^3/uL (1.0-4.8) Monocytes # (Auto) 0.5 x10^3/uL (0.0-1.1) Eosinophils # (Auto) 0.2 x10^3/uL (0.0-0.7) Basophils # (Auto) 0.1 x10^3/uL (0.0-0.2) Activated Clotting Time 207 sec (92-181) 243 sec (92-181) ECG EKG: Sinus bradycardia VTE Prophylaxis Ordered VTE Prophylaxis Devices: No VTE Pharmacological Prophylaxi: No Assessment/Plan Assessment/Plan 1. [place] category 3 lifestyle limiting claudication with abnormal ABIs Patient underwent aortogram with runoff which revealed critical distal external iliac ostial common femoral arterial disease as well as severe right SFA disease. 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 No acute complications noted. Patient has been admitted for overnight monitoring. Justicifation of Admission Dx: Justifications for Admission: Justification of Admission Dx: Yes DEMARCUS LATHAM MD Jun 16, 2021 15:00
[2021-06-16] MEDS ORDERED: CLOPIDOGREL BISULFATE 75 MG TABLET PO ONE (15:15)
--- NOTE | 2021-06-16 15:22 | CARD ---
MR#: [id number] Date of Study: 06/16/2021 Ordering Physician: DEMARCUS MURILLO, Referring Physician: DEMARCUS MURILLO, Tech: Romina Skelton RT(R)() APPROVED REPORT Patient StatusOUT-PATIENT Zinc Skimmer: Romina Skelton RT(R)() Procedure(s) performed: FL TIME: 18.3 MIN DOSE: 184 GYCM2 CONTRAST: 84 ML MODERATE SEDATION: 98 MINUTES Aortogram with bilateral run-off PVI of the distal right external iliac artery and ostial common femoral artery PVI with atherectomy of the R SFA INDICATION FOR PROCEDURE The indication(s) include : Bilateral claudication. CASE TECHNIQUE After explaining the risks, benefits, and alternative options, informed consent was obtained from the patient. IV conscious sedation was used throughout procedure with appropriate monitoring and was per formed in the presence of a registered nurse who was an independent trained observer other than the hernán song performing the procedure. During this case, Fluoroscopy and low osmolar contrast were used f or imaging. Specimen(s) Removed: N/A Estimated Blood loss: 30 cc's. PROCEDURE NARRATIVE Clinical information: Hannah Mary is a 65-year-old woman presented to the hospital for a planned aortogram with runoff in the setting of prior PAD and worsening claudication. Procedure details: After proper informed consent the left groin was prepped and draped in usual sterile fashion. Access: Under ultrasound guidance and fluoroscopic guidance a 5 [place] sheath was placed in the left common f emoral artery via the modified Seldinger technique. A hardcopy image has been stored in the PACS sys tem. Diagnostic angiography: A 5 [place] Omni Flush catheter was placed in the abdominal aorta and digital subtraction angiography was performed. Next the Omni Flush catheter was used to engage the right common iliac artery and a G lidewire advantage wire was used to place the catheter in the distal external iliac artery and right lower extremity runoff images were obtained. Findings: Aorta has moderate diffuse atherosclerosis with a mid abdominal focal eccentric 50% stenosis Right common iliac artery has no significant disease Right external iliac artery has a distal 80% stenosis extending into the ostium of the common femoral artery Right internal iliac artery has no significant disease Right common femoral artery has an ostial 80% stenosis as noted above Right profunda has no significant disease Right superficial femoral artery has tandem 40% stenosis followed by a more distal 80% calcific steno sis at the level of the abductor canal. Right popliteal artery has no significant disease There is three-vessel runoff below the knee with out any focal high-grade stenosis noted. Left common iliac artery has a patent stent in the distal segment extending into the external iliac a rtery. Left external iliac artery has no significant disease with a patent stent in the proximal portion Left internal iliac artery has an ostial 50% stenosis due to the the common and external iliac artery stent covering the ostium but otherwise no significant disease noted Left common femoral artery has no significant disease Left SFA has a flush ostial occlusion Left profunda has no significant disease and provides the main collateral to the distal leg. Interventional technique: Given the significant right-sided disease a decision was made to perform an intervention. The Advanced Image Enhancement advantage wire was used to exchange the left-sided sheath for a 6 [place] sheat h which was placed in the mid right external iliac artery. Heparin was used for anticoagulation. Ne xt, a 0.014 inch command wire with the aid of a 0.018 inch [place] catheter was used to cross the s tenosis in the SFA. Next the wire was exchanged for a 0.017 inch [place] wire. Next orbital atherecto my was performed with a 2 mm marta with multiple passes in the distal SFA. Next balloon angioplasty w as performed with a [place] 5.5 x 100 mm balloon at nominal pressures. Next a repeat angioplasty was performed with a 6 x 20 mm [place] balloon in the distal external iliac and ostial common femoral delta rial disease. Residual stenosis in both locations was 0%. Final angiography demonstrated excellent three-vessel runoff distally without any residual dissection or flow-limiting stenosis. At case comp letion the left groin sheath was exchanged for short 6 [place] sheath and this was removed via manual compression and hemostasis was achieved. No acute complications noted. Conclusion 1. Moderate aortic vascular disease with approximately 50% stenosis in the mid to distal abdominal a endy 2. Patent left external iliac artery stent 3. Successful balloon angioplasty with a 6 mm balloon of the distal external iliac/ostial common fem oral artery stenosis. 4. Successful orbital atherectomy and balloon angioplasty with a 5.5 mm balloon of the mid and dista l SFA Recommendations 1. Plavix 75 mg daily 2. Xarelto 2.5 mg daily 3. Consider staged intervention for left SFA occlusion and pedal approach. Signed by : Demarcus Murillo, Electronically Approved : 06/16/2021 15:22:02
[2021-06-16] MEDS: RIVAROXABAN 10 MG TABLET. PO SCH (20:53)
[2021-06-16] MEDS ORDERED: ATORVASTATIN CALCIUM 40 MG TABLET. PO SCH (21:00)
[2021-06-17 02:23] VITALS: BP 155/47
[2021-06-17 07:15] VITALS: BP 177/65
[2021-06-17] MEDS ORDERED: CLOPIDOGREL BISULFATE 75 MG TABLET PO SCH (08:00)
[2021-06-17] MEDS: RIVAROXABAN 10 MG TABLET. PO SCH (08:22)
[2021-06-17] MEDS ORDERED: ANTI-COAG MONITOR BY PHARMACY. MC PRN (08:30)
[2021-06-17 10:48] VITALS: BP 178/84
--- NOTE | 2021-06-17 11:08 | NUR ---
SS following for discharge planning. SS reviewed pt chart and discussed with pt RN. Pt is from home with spouse and is currently on room air. Cardiology following. Pt had aortogram with run off on 06/16/2021. SS will continue to follow for discharge planning.
[2021-06-17] MEDS ORDERED: RIVA10TA PO (12:00)
[2021-06-17] MEDS ORDERED: AMLO-187 PO (12:00)
[2021-06-17] MEDS ORDERED: CLOP75TA PO (12:01)
--- NOTE | 2021-06-17 12:02 | PDOC3 ---
AQUILES RAND FAMILY AND CONSUMER SCIENCES PROFESSOR 06/17/21 1202: Discharge Summary Visit Information Date of Admission: Jun 16, 2021 Date of Discharge: Jun 17, 2021 Admitting Diagnosis: Severe LE PAD with claudications, HTN, HLP Final Diagnosis Severe LE PAD with claudications, HTN, HLP, s/P [employer]ER Brief Hospital Course Allergies Allergies Coded Allergies Type Severity Reaction Last Updated Verified varenicline Allergy Unknown 06/16/21 Yes Vital Signs Vital Signs Date Time Temp Pulse Resp B/P (MAP) Pulse Ox O2 Delivery O2 Flow Rate FiO2 06/17/21 10:48 97.6 64 20 178/84 (115) 96 Room Air 97.6 06/17/21 08:00 2.0 Lab Results Laboratory Tests Test 06/16/21 08:00 06/16/21 08:40 06/16/21 09:51 06/16/21 10:25 Prothrombin Time 11.8 SEC (11.7-14.0) Prothromb Time International Ratio 0.9 (0.8-1.1) Sodium Level 142 mmol/L (136-145) Potassium Level 4.6 mmol/L (3.5-5.1) Chloride Level 107 mmol/L (98-107) Carbon Dioxide Level 24 mmol/L (21-32) Anion Gap 11 (6-14) Blood Urea Nitrogen 10 mg/dL (7-20) Creatinine 0.8 mg/dL (0.6-1.0) Estimated GFR (Cockcroft-Gault) 87.7 Glucose Level 112 mg/dL (70-99) Calcium Level 8.6 mg/dL (8.5-10.1) White Blood Count 5.4 x10^3/uL (4.0-11.0) Red Blood Count 4.55 x10^6/uL (3.50-5.40) Hemoglobin 12.7 g/dL (12.0-15.5) Hematocrit 39.1 % (36.0-47.0) Mean Corpuscular Volume 86 fL (79-100) Mean Corpuscular Hemoglobin 28 pg (25-35) Mean Corpuscular Hemoglobin Concent 33 g/dL (31-37) Red Cell Distribution Width 14.1 % (11.5-14.5) Platelet Count 295 x10^3/uL (140-400) Neutrophils (%) (Auto) 54 % (31-73) Lymphocytes (%) (Auto) 32 % (24-48) Monocytes (%) (Auto) 9 % (0-9) Eosinophils (%) (Auto) 4 % (0-3) Basophils (%) (Auto) 1 % (0-3) Neutrophils # (Auto) 2.9 x10^3/uL (1.8-7.7) Lymphocytes # (Auto) 1.7 x10^3/uL (1.0-4.8) Monocytes # (Auto) 0.5 x10^3/uL (0.0-1.1) Eosinophils # (Auto) 0.2 x10^3/uL (0.0-0.7) Basophils # (Auto) 0.1 x10^3/uL (0.0-0.2) Activated Clotting Time 207 sec (92-181) 243 sec (92-181) Brief Hospital Course This is a 65 yo female admitted for planned abdominal aortogram/runoff due to LE PAD with claudications. She has moderate aortic vascular disease with approximately 50% stenosis in the mid to distal abdominal aorta, patent left external iliac artery stent, successful balloon angioplasty with a 6 mm balloon of the distal external iliac/ostial common femoral artery stenosis and successful orbital atherectomy and balloon angioplasty with a 5.5 mm balloon of the mid and distal SFA. Will consider staged intervention for left SFA occlusion and pedal approach. She tolerated the procedure well. Left groin arteriotomy site intact. VSS. Denies any chest pain, SOA. Neurovascular status to bilateral LE intact. AOX3, SR/SB without ectopies, LSCTA, abd soft and nontender and no peripheral edema. VSS. She is to add xarelto on her regimen. Reiterated smoking cessation. Discharge Information Condition at Discharge: Stable Follow Up: Weeks (6) Disposition/Orders: D/C to Home Scheduled Amlodipine Besylate (Amlodipine Besylate) 10 Mg Tablet, 10 MG PO DAILY for HTN for 30 Days, #30 Ref 4 Prescribed by: AQUILES RAND on 06/17/21 1200 Atorvastatin Calcium (Lipitor) 40 Mg Tablet, 1 TAB PO QHS for HLP for 30 Days, #30 Ref 3 Prescribed by: AQUILES RAND on 05/07/20 1208 Last Taken: Unknown Dose on 06/15/21 Last Action: Reviewed on 06/16/21816 by LONNY MAYER Bupropion Hcl (Wellbutrin Xl) 150 Mg Tab.er.24h, 1 TAB PO DAILYWBKFT for depression, #30 Ref 2 (Reported) Entered as Reported by: LONNY MAYER on 06/16/21816 Last Taken: Unknown Dose on 06/15/21 Last Action: New Order on 06/16/21816 by LONNY MAYER Celecoxib (Celebrex) 200 Mg Capsule, 1 CAP PO DAILY for PAIN, #30 Ref 2 (Reported) Entered as Reported by: LONNY MAYER on 06/16/21816 Last Taken: Unknown Dose on 06/15/21 Last Action: New Order on 06/16/21816 by LONNY MAYER Clopidogrel Bisulfate (Clopidogrel) 75 Mg Tablet, 1 TAB PO DAILY for PVD for 30 Days, #30 Ref 4 Prescribed by: AQUILES RAND on 06/17/21 1201 Diclofenac Sodium (Voltaren Arthritis Pain) 20 Gm Gel..gram., 20 GM TP QID for PAIN, (Reported) Entered as Reported by: LONNY MAYER on 06/16/21816 Last Taken: Unknown Dose on 06/15/21 Last Action: New Order on 06/16/21816 by LONNY MAYER Gabapentin (Gabapentin) 600 Mg Tablet, 300 MG PO TID for NEUROGENIC PAIN, (Reported) Entered as Reported by: LONNY MAYER on 06/16/21816 Last Taken: Unknown Dose on 06/15/21 Last Action: New Order on 06/16/21816 by LONNY MAYER Rivaroxaban (Xarelto) 10 Mg Tablet, 2.5 MG PO BID for PAD for 30 Days, #15 Ref 4 Prescribed by: AQUILES RAND on 06/17/21 1200 Sertraline Hcl (Zoloft) 100 Mg Tablet, 1 TAB PO DAILY for antidepressant, #30 Ref 5 (Reported) Entered as Reported by: MARCELLA ROBERTS on 05/06/20 0754 Last Taken: Unknown Dose on 06/15/21 Last Action: Reviewed on 06/16/21816 by LONNY MAYER Discontinued Medications Amlodipine Besylate (Amlodipine Besylate) 5 Mg Tablet, 5 MG PO DAILY for HTN, (Reported) Entered as Reported by: LONNY MAYER on 06/16/21816 Last Taken: Unknown Dose on 06/15/21 Last Action: New Order on 06/16/21816 by LONNY MAYER Aspirin (Aspirin Ec) 81 Mg Tablet., 81 MG PO DAILYWBKFT for PAD for 30 Days, #30 for 30 days only and then may stop Prescribed by: AQUILES RAND on 05/07/20 1208 Last Taken: Unknown Dose on 06/15/21 Last Action: Reviewed on 06/16/21816 by LONNY MAYER Patient Instructions Patient Instructions GENERAL INSTRUCTIONS: 1. Your dressing should be removed prior to leaving the hospital. 2. It is OK to shower the day after your procedure. 3. If you received stents, be sure to carry your stent information card with you in your wallet/purse at all times. 4. Call the office immediately at [phone] if you notice any fever or if there is redness, worsening tenderness/pain, increased bruising, or drainage from the puncture site. 5. Should you have bleeding from the site, lie down immediately & put pressure on the site. The pressure should be hard enough to stop the bleeding. Have the nearest person call 911. DO NOT try to drive to the ER with active bleeding. 6. If you notice a change in color, coolness to touch, or loss of feeling in the affected extremity, come to the emergency room. Please have someone drive you or call 911 if no one is available. DO NOT drive yourself. 7. If you normally take glucophage (metformin), please do not take this medicine for 48 hours following your procedure. 8. DO NOT STOP TAKING YOUR PLAVIX OR ASPIRIN UNLESS IT IS CLEARED BY A PHARMACIST PER DIEM OF YOUR LIGHTER CAPTAIN AT OUR OFFICE. 9. QUIT SMOKING: the [place] [employer], [place] [employer], & [place] [employer] have cessation resources available on their websites 10. Please have someone available to drive you home from the hospital as you may be limited by sedation medications given during the procedure. Femoral (Groin) access: 1. Do no lifting, pushing, pulling, bending, stooping, or recurrent stair climbing for 3 days following your procedure. 2. Once past the first 3 days, do not do any HEAVY exertion or lifting for one week following the procedure. No gym workouts, running, lifting greater than a gallon of milk, etc 3. Do not submerge in bath or pool for one week. OK to drive 3 days following your procedure, but if going long distance, do not go alone & take hourly breaks to get out of car and walk around. Call the office at [phone] for any questions or concerns. Justicifation of Admission Dx: Justifications for Admission: Justification of Admission Dx: Yes DEMARCUS LATHAM MD 06/17/211941: Discharge Summary Brief Hospital Course Brief Hospital Course Pt. seen and examined. Agree with above ANATOMY PROFESSOR note. Doing well post RSFA intervention. Ok to DC on plavix and xarelto. Close outpt f/u. Thanks Discharge Information Scheduled Amlodipine Besylate (Amlodipine Besylate) 10 Mg Tablet, 10 MG PO DAILY for HTN for 30 Days, #30 Ref 4 Prescribed by: AQUILES RAND on 06/17/21 1200 Atorvastatin Calcium (Lipitor) 40 Mg Tablet, 1 TAB PO QHS for HLP for 30 Days, #30 Ref 3 Prescribed by: AQUILES RAND on 05/07/20 1208 Last Taken: Unknown Dose on 06/15/21 Last Action: Reviewed on 06/16/21816 by LONNY MAYER Bupropion Hcl (Wellbutrin Xl) 150 Mg Tab.er.24h, 1 TAB PO DAILYWBKFT for depression, #30 Ref 2 (Reported) Entered as Reported by: LONNY MAYER on 06/16/21816 Last Taken: Unknown Dose on 06/15/21 Last Action: New Order on 06/16/21816 by LONNY MAYER Celecoxib (Celebrex) 200 Mg Capsule, 1 CAP PO DAILY for PAIN, #30 Ref 2 (Reported) Entered as Reported by: LONNY MAYER on 06/16/21816 Last Taken: Unknown Dose on 06/15/21 Last Action: New Order on 06/16/21816 by LONNY MAYER Clopidogrel Bisulfate (Clopidogrel) 75 Mg Tablet, 1 TAB PO DAILY for PVD for 30 Days, #30 Ref 4 Prescribed by: AQUILES RAND on 06/17/21 1201 Diclofenac Sodium (Voltaren Arthritis Pain) 20 Gm Gel..gram., 20 GM TP QID for PAIN, (Reported) Entered as Reported by: LONNY MAYER on 06/16/21816 Last Taken: Unknown Dose on 06/15/21 Last Action: New Order on 06/16/21816 by LONNY MAYER Gabapentin (Gabapentin) 600 Mg Tablet, 300 MG PO TID for NEUROGENIC PAIN, (Reported) Entered as Reported by: LONNY MAYER on 06/16/21816 Last Taken: Unknown Dose on 06/15/21 Last Action: New Order on 06/16/21816 by LONNY MAYER Rivaroxaban (Xarelto) 10 Mg Tablet, 2.5 MG PO BID for PAD for 30 Days, #15 Ref 4 Prescribed by: AQUILES RAND on 06/17/21 1200 Sertraline Hcl (Zoloft) 100 Mg Tablet, 1 TAB PO DAILY for antidepressant, #30 Ref 5 (Reported) Entered as Reported by: MARCELLA ROBERTS on 05/06/20 0754 Last Taken: Unknown Dose on 06/15/21 Last Action: Reviewed on 06/16/21816 by LONNY MAYER Discontinued Medications Amlodipine Besylate (Amlodipine Besylate) 5 Mg Tablet, 5 MG PO DAILY for HTN, (Reported) Entered as Reported by: LONNY MAYER on 06/16/21816 Last Taken: Unknown Dose on 06/15/21 Last Action: New Order on 06/16/21816 by LONNY MAYER Aspirin (Aspirin Ec) 81 Mg Tablet.dr, 81 MG PO DAILYWBKFT for PAD for 30 Days, #30 for 30 days only and then may stop Prescribed by: AQUILES RAND on 05/07/20 1208 Last Taken: Unknown Dose on 06/15/21 Last Action: Reviewed on 06/16/21816 by AQUILES ISIDRO APRN Jun 17, 2021 12:02 DEMARCUS LATHAM MD Jun 17, 2021 19:42
[2021-06-17 12:14] VITALS: BP 178/84
== END 2021-06-17 12:30 | disposition home or self-care (01) ==
LOC: CCL 07:46 → 6 SOUTH 13:25
PROVIDERS: ADMIT Internal Medicine Cardiovascular Disease; ATTEND Internal Medicine Cardiovascular Disease
DX: I73.9 Peripheral vascular disease, unspecified (principal); I70.0 Atherosclerosis of aorta; I74.5 Embolism and thrombosis of iliac artery; I63.9 Cerebral infarction, unspecified; I10 Essential (primary) hypertension; M19.90 Unspecified osteoarthritis, unspecified site; E78.5 Hyperlipidemia, unspecified; R29.700 NIHSS score 0; F32.A Depression, unspecified; Z72.0 Tobacco use; Z79.01 Long term (current) use of anticoagulants; Z79.02 Long term (current) use of antithrombotics/antiplatelets; Z79.899 Other long term (current) drug therapy
CPT/HCPCS: 36415; 37220; 37225; 75625; 75716; 76937; 80048; 85025; 85347; 85610; 99152; 99153; C1724; C1725; C1769; C1887; C1894; G0378; G0379; J1644; J2250; J3010; J3490; J7030; Q9967